=== PATIENT | female | born 1980 | race Caucasian/White ===

== ENCOUNTER 2022-04-26 17:05 | Emergency (ER) | payer SELFPAY ==
[2022-04-26 17:07] VITALS: BMI 33.4
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
--- NOTE | 2022-04-26 17:25 | ECG_ITS ---
[facility] Test Date: 2022-04-26 Pat Name: Graciela Davis Department: Room: Gender: Female Wet Roller: : 1980 Requested By: Mahsa Montoya Order Number: [id number] Glez MD: Eliot Dillard M.D. Measurements Intervals [place] Rate: 88 P: 48 WA: 144 QRS: 87 QRSD: 110 T: 42 QT: 349 QTc: 424 Interpretive Statements SINUS RHYTHM POSSIBLE LEFT ATRIAL ENLARGEMENT [-0.1mV P-WAVE IN V1/V2] INCOMPLETE RIGHT BUNDLE BRANCH BLOCK [90+ ms QRS DURATION, TERMINAL R IN V1/V2, 40+ ms S IN I/aVL/V4/V5/V6] No previous ECG available for comparison Electronically Signed On 04-27-2022 0:15:12 CDT by Eliot Dillard M.D. [id number]
--- NOTE | 2022-04-26 17:25 | XRR_ITS ---
PROCEDURE INFORMATION: Exam: XR Chest Exam date and time: 04/26/2022 5:42 PM Age: 42 years old Clinical indication: Other: Mental changes; Additional info: Psych pathologies TECHNIQUE: Imaging protocol: Radiologic exam of the chest. Views: 1 view. COMPARISON: CT cervical spin wo con* [id number] 04/26/2022 5:35 PM FINDINGS: Lungs: Unremarkable. No consolidation. Pleural spaces: Unremarkable. No pleural effusion. No pneumothorax. Heart/Mediastinum: Unremarkable. No cardiomegaly. Bones/joints: Unremarkable. XR/XR chest 1V portable [id number] IMPRESSION: No acute findings.
[2022-04-26 18:12] LABS: Basophils # 0.1 10^3/uL (0.0-0.1); Basophils % 0.4 %; Eosinophils # 0.2 10^3/uL (0.0-0.8); Eosinophils % 0.8 %; Hematocrit 50.6 % (37.0-47.0); Hemoglobin 16.8 g/dL (11.5-15.3); Lymphocytes # 2.8 10^3/uL (0.8-4.8); Lymphocytes % 13.1 %; Mean Corpuscular HGB Conc 33.2 g/dL (30.0-36.0); Mean Corpuscular Hemoglobin 31.5 pg (28.0-34.0); Mean Corpuscular Volume 94.8 fl (81-99); Mean Platelet Volume 9.7 fL (7.4-10.4); Monocytes # 1.4 10^3/uL (0.2-0.9); Monocytes % 6.4 %; Neutrophils # 16.74 10^3/uL (1.8-7.7); Neutrophils % 78.2 %; Nucleated Red Blood Cells % 0 %; Platelet Count 361 10^3/cmm (130-400); Red Blood Count 5.34 10^6/uL (4.1-5.3); Red Cell Distribution Width 12.9 % (12.1-15.1); White Blood Count 21.4 10^3/uL (4.0-10.0)
[2022-04-26 18:39] LABS: Alanine Aminotransferase 26 U/L (0-33); Albumin Level 4.1 g/dL (3.5-5.2); Alcohol Level 181 mg/dL (0-10); Alkaline Phosphatase 82 U/L (35-105); Anion Gap 15.3 (5-19); Aspartate Amino Transferase 29 U/L (0-32); Blood Urea Nitrogen 9 mg/dL (6-20); Calcium 9.3 mg/dL (8.5-10.5); Carbon Dioxide 25 mmol/L (22-29); Chloride 105 mmol/L (98-107); Globulin 3.5 g/dL (1.3-4.6); Glomerular Filtration Rate 110.7 mL/min (90-130); Glucose 92 mg/dL (65-115); Lipase 69 U/L (13-60); Osmolality Calculated 290 mOsm/kg (285-295); Potassium 4.3 mmol/L (3.5-5.1); Sodium 141 mmol/L (136-145); Thyroid Stimulating Hormone 0.95 uIU/mL (0.27-4.20); Total Bilirubin 0.2 mg/dL (0.15-1.2); Total Protein 7.6 g/dL (6.6-8.7)
[2022-04-26 18:40] LABS: Acetaminophen < 5.0 ug/mL (10-30); Salicylate < 0.3 mg/dL (3-10)
[2022-04-26 18:41] LABS: SARS Covid-2 Antigen Negative (Negative)
[2022-04-26] MEDS: acetaminophen 500 mg Tablet PO ×2 (18:43→22:28)
[2022-04-26] MEDS: tetanus-dipt-pertussis 0.5 mL SDV IM (18:43)
[2022-04-26] MEDS: nicotine 21 mg Patch 1 PATCH TRANSDERMA (19:04)
--- NOTE | 2022-04-26 19:54 | XRR_ITS ---
PROCEDURE INFORMATION: Exam: XR Facial Bones, Minimum of 3 Views, Complete Exam date and time: 04/26/2022 9:59 PM Age: 42 years old Clinical indication: Other: R/O fb glass; Additional info: Eval for retained foreign objects TECHNIQUE: Imaging protocol: XR of the facial bones, minimum of 3 views. Complete exam. COMPARISON: CT facial bones wo con* [id number] 04/26/2022 5:30 PM FINDINGS: Sinuses: Well aerated. No opacification. Bones/joints: No fracture. Soft tissues: No metallic radiopaque foreign body. XR/XR facial bones min 3V* [id number] IMPRESSION: No metallic radiopaque foreign body.
[2022-04-26 19:56] LABS: Free T4 Free Thyroxine 1.76 ng/dL (0.82-1.77)
[2022-04-26] MEDS: LORazepam 1 mg Tablet PO (21:02)
[2022-04-26 22:42] LABS: HCG Qualitative Urine. Negative (Negative)
--- NOTE | 2022-04-26 23:39 | PC.NURSE ---
PT DENIES SI AT THIS TIME.
[2022-04-27 00:13] VITALS: BP 132/81; PULSE 97; RESP 18; O2SAT 95
--- NOTE | 2022-04-27 12:44 | DCPLANNER ---
Addendum entered by Keily Crain 04/30/22 09:06: manager cafe received to following message from the ENT clinic regarding follow up appointment: unable to reach patient will be mailing out a letter to have her conact us 04/30 On 04/29/22 @ 09:25 Ping Kraft Wrote To ENT Front Office [facility] 04/29 Original Note: manager cafe had message to schedule a follow up appointment for patient with ENT. manager cafe sent patients information to the front office staff at ENT. Patients information will be printed and reviewed. Clinic will call patient with appointment information.
== END 2022-04-27 00:14 | disposition home or self-care (01) ==
PROVIDERS: Emergency Medicine; Emergency Provider Emergency Medicine
DX: R45.851 Suicidal ideations (principal); F32.A Depression, unspecified; S02.2XXA Fracture of nasal bones, initial encounter for closed fracture; S00.83XA Contusion of other part of head, initial encounter; V89.2XXA Person injured in unspecified motor-vehicle accident, traffic, initial encounter; Z20.822 Contact with and (suspected) exposure to COVID-19; Z23 Encounter for immunization
CPT/HCPCS: 70150; 70450; 70486; 71045; 72125; 80053; 80307; 81025; 83690; 84439; 84443; 85025; 87426; 90471; 90715; 93005; 99285